=== PATIENT | female | born 1990 | race Hispanic/Latino ===

== ENCOUNTER 2019-07-05 12:18 | Inpatient (IN) | payer MEDICAID ==
[~2019-07-05] VITALS: Ht 154.9 cm; Wt 80.7 kg
[2019-07-05] MEDS ORDERED: LACTATED RINGERS 1000ML 1,000 ML IV SCH (13:30)
[2019-07-05] MEDS ORDERED: CITRIC ACID/SODIUM CITRATE 30 ML UDCUP PO PRN (13:30)
[2019-07-05] MEDS ORDERED: CEFAZOLIN SODIUM 1 GM VIAL IVP PRN (13:30)
[2019-07-05 14:01] LABS: HEMATOCRIT 36.4 % (36-48); MEAN CORPUSCULAR HEMOGLOBIN 30.5 pg (27.0-33.0); MEAN CORPUSCULAR VOLUME 92.4 fL (79-99); RED BLOOD CELL COUNT(AUTO) 3.94 MIL/uL (4.00-5.50); RED CELL DISTRIBUTION WIDTH 13.3 % (11.0-15.5)
[2019-07-05 14:20] LABS: APPEARANCE,URINE Clear (CLEAR); BILIRUBIN,URINE Negative (NEGATIVE); COLOR,URINE Dark Yellow (YELLOW); GLUCOSE, URINE (UA) Negative (NEGATIVE); KETONES,URINE Trace mg/dL (NEGATIVE); LEUKOCYTE ESTERASE ,URINE Trace (NEGATIVE); NITRATE,URINE Negative (NEGATIVE); OCCULT BLOOD,URINE Negative (NEGATIVE); PH,URINE 6.5 (5.0-8.0); PROTEIN,URINE Negative (NEGATIVE); UROBILINOGEN,URINE 0.2 mg/dL (0.2-1.0)
[2019-07-05 14:27] LABS: BACTERIA,URINE Few /HPF (None Seen); RBC,URINE 0-1 /HPF (0-1)
[2019-07-05 14:28] LABS: SQUAMOUS EPITHELIAL CELL,UR Few /HPF (0-2)
[2019-07-05] MEDS ORDERED: CALDOLOR 800MG+NS 250ML 250 ML IV ONE ×2 (15:24→23:52)
[2019-07-05] MEDS ORDERED: METOCLOPRAMIDE 10 MG/2 ML VIAL ONE (15:27)
[2019-07-05] MEDS ORDERED: PHENYLEPHRINE HCL 10 MG/ML 1ML VIAL IV ONE (15:27)
[2019-07-05] MEDS ORDERED: FENTANYL CITRATE PF 50 MCG/1 ML 2ML VIAL ONE (15:28)
[2019-07-05] MEDS ORDERED: ONDANSETRON HCL 4 MG/2 ML VIAL ONE (15:28)
[2019-07-05] MEDS ORDERED: DURAMORPH PF1 MG/ML 10ML AMP IV ONE (15:28)
[2019-07-05] MEDS ORDERED: CEFAZOLIN SODIUM 1 GM VIAL IVP ONE (15:40)
[2019-07-05] MEDS ORDERED: PROMETHAZINE HCL 25 MG/ML 1ML AMPULE IM PRN (16:45)
[2019-07-05] MEDS ORDERED: MEPERIDINE-PF 75 MG/ML SYG IM PRN (16:45)
[2019-07-05] MEDS ORDERED: DEXTROSE 5 %-0.45 % NACL 1,000 ML IV PRN (16:45)
[2019-07-05] MEDS ORDERED: SODIUM CHLORIDE 0.9% 10 ML VIAL IVP PRN (16:45)
[2019-07-05] MEDS ORDERED: OXYTOCIN-LR 20 UNITS/1000 ML 1,000 ML IV PRN (16:45)
[2019-07-05 18:00] VITALS: BP 115/69
[2019-07-05] MEDS ORDERED: PREN-154 PO (18:14)
[2019-07-05 19:23] VITALS: BP 108/73
[2019-07-05] MEDS ORDERED: ONDANSETRON HCL 4 MG/2 ML VIAL IVP PRN (19:30)
[2019-07-05] MEDS ORDERED: DiphenhydrAMINE HCL 50 MG/ML VIAL IVP PRN (19:30)
[2019-07-05] MEDS ORDERED: LORATADINE 10 MG TABLET PO PRN (19:30)
[2019-07-05] MEDS ORDERED: EPHEDRINE SULFATE 50 MG/ML AMPULE IVP PRN (19:30)
[2019-07-05] MEDS ORDERED: NALOXONE HCL 0.4 MG/1 ML ML IVP PRN ×3 (19:30)
[2019-07-06 00:02] VITALS: BP 109/70
[2019-07-06] MEDS ORDERED: CALDOLOR 800MG+NS 250ML 250 ML IV SCH (00:45)
[2019-07-06 03:29] VITALS: BP 117/76
[2019-07-06 06:50] LABS: HEMATOCRIT 32.5 % (36-48); MEAN CORPUSCULAR HEMOGLOBIN 29.4 pg (27.0-33.0); MEAN CORPUSCULAR HGB CONC 31.4 g/dL (32.0-36.0); MEAN CORPUSCULAR VOLUME 93.7 fL (79-99); RED BLOOD CELL COUNT(AUTO) 3.47 MIL/uL (4.00-5.50); RED CELL DISTRIBUTION WIDTH 13.4 % (11.0-15.5); WHITE BLOOD COUNT (AUTO) 8.6 K/uL (4.8-10.8)
[2019-07-06 07:33] VITALS: BP 106/77
[2019-07-06 08:11] LABS: HEPATITIS Bs ANTIGEN SCREEN P Negative (Negative)
[2019-07-06] MEDS: ACETAMINOPHEN-CODEINE 300/30MG TAB PO PRN ×3 (08:30→20:09)
[2019-07-06] MEDS: DOCUSATE SODIUM 100 MG CAP PO SCH ×2 (08:30→21:33)
[2019-07-06] MEDS ORDERED: ACETAMINOPHEN EXTRA STRENGTH 500 MG TABLET PO PRN (08:30)
[2019-07-06] MEDS: SIMETHICONE 80 MG TAB.CHEW PO PRN ×3 (08:30→21:34)
[2019-07-06] MEDS ORDERED: BISACODYL 10 MG SUPP.RECT RC PRN (08:30)
[2019-07-06] MEDS ORDERED: HYDROCODONE/ACETAMINOPHEN 5/325 MG TAB PO PRN (08:30)
[2019-07-06 11:28] VITALS: BP 112/62
--- NOTE | 2019-07-06 15:19 | NUR ---
PATIENT C/O PAIN TO RIGHT SHOULDER. ADVISED PATIENT TO CONTINUE AMBULATING. DUCOLAX SUPPOSITORY OFFERED. PATIENT DECLINED. PRUNE JUICE GIVEN.
[2019-07-06] MEDS: IBUPROFEN 800 MG TAB PO SCH (16:41)
[2019-07-06 16:58] VITALS: BP 117/74
[2019-07-06 19:52] VITALS: BP 117/77
[2019-07-07 00:33] VITALS: BP 111/74
[2019-07-07] MEDS: IBUPROFEN 800 MG TAB PO SCH ×2 (00:57→08:54)
[2019-07-07 03:31] VITALS: BP 105/75
[2019-07-07 07:40] VITALS: BP 109/72
[2019-07-07] MEDS: DOCUSATE SODIUM 100 MG CAP PO SCH (08:49)
[2019-07-07] MEDS: SIMETHICONE 80 MG TAB.CHEW PO PRN (08:50)
--- NOTE | 2019-07-07 08:50 | NUR ---
DISCHARGE INSTRUCTIONS READ AND EXPLAINED TO PATIENT. INCISION CARE REVIEWED WITH PATIENT. RX FOR TYLENOL #3, IBUPROFEN 800MG AND COLACE 100MG HANDED TO PATIENT. PATIENT VOICED UNDERSTANDING ON ALL DISCHARGE INSTRUCTIONS.
--- NOTE | 2019-07-07 09:35 | NUR ---
PATIENT LEFT UNIT VIA WHEELCHAIR WITH BABY IN ARMS. PERSONAL VEHICLE USED FOR TRANSPORTATION ACCOMPANIED BY SIGNIFICANT OTHER. BABY SECURE IN CARSEAT. NO COMPLAINTS OR CONCERNS ADDRESSED FROM PATIENT ON DISCHARGE.
== END 2019-07-07 09:35 | disposition home or self-care (01) | DRG 539 ==
LOC: LDH 12:18 → WSH 17:55
PROVIDERS: ADMIT Obstetrics & Gynecology; ATTEND Obstetrics & Gynecology
PROC: 0UB60ZZ Excision of Left Fallopian Tube, Open Approach (ICD-10-PCS; 2019-07-05)
PROC: 10D00Z1 Extraction of Products of Conception, Low, Open Approach (ICD-10-PCS; principal; 2019-07-05 16:00)
DX: O32.1XX0 Maternal care for breech presentation, not applicable or unspecified (principal); N83.8 Other noninflammatory disorders of ovary, fallopian tube and broad ligament; O34.83 Maternal care for other abnormalities of pelvic organs, third trimester; Z37.0 Single live birth; Z3A.39 39 weeks gestation of pregnancy
CPT/HCPCS: 36415; 59510; 81001; 85027; 86592; 86850; 86900; 86901; 87340; A4344; G0378; J0690; J1741; J2274; J2370; J2405; J2590; J2765; J3010; J7120